=== PATIENT | male | born 1975 | race Caucasian/White ===

== ENCOUNTER 2016-11-20 14:48 | Emergency (ER) | payer MEDICAID ==
[~2016-11-20] VITALS: Ht 180.3 cm; Wt 102.0 kg
[2016-11-20 14:53] VITALS: BP 156/108; PULSE 107; RESP 28; O2SAT 94
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
[2016-11-20] MEDS ORDERED: HYDROmorphone HCL PF 1 MG/ML VIAL IV PUSH ONE (15:15)
[2016-11-20] MEDS ORDERED: ONDANSETRON HCL 4 MG/2 ML VIAL IV PUSH ONE (15:15)
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
[2016-11-20] MEDS ORDERED: MOTR200T4 PO (16:45)
[2016-11-20] MEDS ORDERED: HYDR-3533 PO (16:45)
== END 2016-11-20 17:09 | disposition home or self-care (01) ==
LOC: NEPC 14:48
DX: S30.0XXA Contusion of lower back and pelvis, initial encounter (principal); F17.200 Nicotine dependence, unspecified, uncomplicated; V19.3XXA Pedal cyclist (driver) (passenger) injured in unspecified nontraffic accident, initial encounter; Y93.55 Activity, bike riding
CPT/HCPCS: 72110; 72170; 96374; 96375; 99283; J1170; J2405

== ENCOUNTER 2016-12-30 17:29 | Emergency (ER) | payer MEDICAID ==
[~2016-12-30] VITALS: Ht 180.3 cm; Wt 100.0 kg
[~2016-12-30 17:29] MED LIST: HYDR-3533 PO; MOTR200T4 PO
[2016-12-30 17:33] VITALS: BP 181/79; PULSE 97; RESP 21; TEMP 98.6; O2SAT 98
[2016-12-30] MEDS ORDERED: HYDROmorphone HCL PF 1 MG/ML VIAL IVS ONE (18:15)
[2016-12-30] MEDS ORDERED: ONDANSETRON HCL 4 MG/2 ML VIAL IVP ONE (18:15)
[2016-12-30] MEDS ORDERED: DIATRIZOATE MEGLUM/DIATRIZOATE SOD 9 ML CUP ONE (18:22)
[2016-12-30 18:31] VITALS: O2SAT 98
[2016-12-30 18:37] LABS: AUTOMATED NEUTROPHIL # 4.7 TH/MM3 (1.8-7.7); BASOPHIL % 0.6 % (0.0-2.0); EOSINOPHIL # 0.4 TH/MM3 (0-0.4); EOSINOPHIL % 5.1 % (0.0-4.0); HEMATOCRIT 41.3 % (39.0-51.0); HEMO FLAGS DIFF FINAL; LYMPH % 27.1 % (9.0-44.0); LYMPHOCYTE # 2.1 TH/MM3 (1.0-4.8); MEAN CELL VOLUME 88.4 FL (80.0-100.0); MEAN CORPUSCULAR HEMOGLOBIN 29.7 PG (27.0-34.0); MEAN CORPUSCULAR HGB CONC 33.6 % (32.0-36.0); MONO % 7.2 % (0.0-8.0); PLATELET COUNT 253 TH/MM3 (150-450); RED BLOOD COUNT 4.68 MIL/MM3 (4.50-5.90); RED CELL DISTRIBUTION WIDTH 13.7 % (11.6-17.2); WHITE BLOOD COUNT 7.9 TH/MM3 (4.0-11.0)
[2016-12-30 19:05] LABS: ALKALINE PHOSPHATASE 84 U/L (45-117); ALT (GPT) 30 U/L (12-78); ANION GAP 9 MEQ/L (5-15); AST (GOT) 22 U/L (15-37); BLOOD UREA NITROGEN 17 MG/DL (7-18); CHLORIDE 107 MEQ/L (98-107); GLOMERULAR FILTRATION RATE 64 ML/MIN (>89); SODIUM (NA) 141 MEQ/L (136-145); TOTAL BILIRUBIN ADULT 0.6 MG/DL (0.2-1.0)
[2016-12-30 19:16] LABS: POTASSIUM 4.2 MEQ/L (3.5-5.1)
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
[2016-12-30 19:22] VITALS: BP 118/74; PULSE 66; RESP 18; O2SAT 96
[2016-12-30] MEDS ORDERED: IOHEXOL 350 MG/ML 10 ML VIAL (for RAD DIAG) IV ONE (20:03)
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
[2016-12-30] MEDS ORDERED: HYDR-3533 PO (20:21)
[2016-12-30] MEDS ORDERED: NAPR500 PO (20:30)
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
--- NOTE | 2016-12-31 10:22 | EKG ---
Date Performed: 12/30/2016 Time Performed: 17:41:04 PTAGE: 41 years EKG: Sinus rhythm NORMAL ECG NO PREVIOUS TRACING DOCTOR: Milana Augustin Interpretating Date/Time 12/31/2016 10:20:09
== END 2016-12-30 20:53 | disposition home or self-care (01) ==
LOC: NEPC 17:29
DX: M48.54XA Collapsed vertebra, not elsewhere classified, thoracic region, initial encounter for fracture (principal); R10.12 Left upper quadrant pain; V19.9XXA Pedal cyclist (driver) (passenger) injured in unspecified traffic accident, initial encounter; Y93.55 Activity, bike riding
CPT/HCPCS: 71260; 74177; 80053; 85025; 93005; 96374; 96375; 99284; J1170; J2405; L0200; L0484; Q9963; Q9967